=== PATIENT | female | born 1955 | race Caucasian/White ===

== ENCOUNTER → 2016-12-06 | Outpatient (CLI) | payer MEDICARE, MEDICAID ==
[2016-12-06 10:13] LABS: ABSOLUTE BASOPHILS # (AUTO) 0.1 10^3/uL (0.0-0.2); ABSOLUTE EOSINOPHILS # (AUTO) 0.2 10^3/uL (0.0-0.6); ABSOLUTE MONOCYTES (AUTO) 0.3 10^3/uL (0.1-1.4); ABSOLUTE NEUT (AUTO) 4.2 10^3/uL (1.7-8.2); EOSINOPHILS % (AUTO) 3.8 % (0-6); HEMATOCRIT 39.9 % (36.0-47.0); HEMOGLOBIN 13.3 g/dL (12.0-15.5); LYMPHOCYTES % (AUTO) 17.4 % (13-45); MEAN CORPUSCULAR HEMOGLOBIN 32.4 pg (27.0-33.4); MEAN CORPUSCULAR HGB CONC 33.4 g/dL (32.0-36.0); MEAN CORPUSCULAR VOLUME 97 fl (80-97); MONOCYTES % (AUTO) 5.6 % (3-13); RED BLOOD COUNT 4.11 10^6/uL (3.72-5.28); RED CELL DISTRIBUTION WIDTH 12.8 % (11.5-14.0); SEGMENTED NEUTROPHILS % (AUTO) 72.2 % (42-78); WHITE BLOOD COUNT 5.8 10^3/uL (4.0-10.5)
[2016-12-06 10:39] LABS: ALANINE AMINOTRANSFERASE 36 U/L (9-52); ALBUMIN 4.6 g/dL (3.5-5.0); ALKALINE PHOSPHATASE 99 U/L (38-126); ANION GAP 10 (5-19); ASPARTATE AMINO TRANSFERASE 26 U/L (14-36); BILIRUBIN,DIRECT 0.1 mg/dL (0.0-0.4); BILIRUBIN,TOTAL 0.6 mg/dL (0.2-1.3); BLOOD UREA NITROGEN 11 mg/dL (7-20); CALCIUM 10.1 mg/dL (8.4-10.2); CARBON DIOXIDE 30 mmol/L (22-30); CHLORIDE 104 mmol/L (98-107); CHOLESTEROL 243.64 mg/dL (0-200); CREATININE RESULT 0.77 mg/dL (0.52-1.25); Direct HDL 105 mg/dL (>40); GLUCOSE 90 mg/dL (75-110); POTASSIUM 4.7 mmol/L (3.6-5.0); SODIUM 144.4 mmol/L (137-145); TOTAL PROTEIN 7.7 g/dL (6.3-8.2); TRIGLYCERIDES 119 mg/dL (<150)
[2016-12-06 10:50] LABS: DIRECT LDL 106 mg/dL (<100)
[2016-12-06 11:45] LABS: THYROID STIMULATING HORMONE 1.79 uIU/mL (0.47-4.68)
== END ==
LOC: LAB 10:01
PROVIDERS: ATTEND Internal Medicine
DX: E78.00 Pure hypercholesterolemia, unspecified (principal); F32.2 Major depressive disorder, single episode, severe without psychotic features; Z79.899 Other long term (current) drug therapy
CPT/HCPCS: 36415; 80053; 80061; 84439; 84443; 85025

== ENCOUNTER → 2016-12-26 | Outpatient (CLI) | payer MEDICARE, MEDICAID | LOC: WI 10:48 | PROVIDERS: ATTEND Internal Medicine | DX: Z12.31 Encounter for screening mammogram for malignant neoplasm of breast (principal) | CPT/HCPCS: 77067; G0202 ==

== ENCOUNTER 2017-06-09 11:18 | Inpatient (IN) | payer MEDICARE, MEDICAID ==
[2017-06-09] MEDS ORDERED: DILTIAZEM HCL INJ 25 MG/5 ML VIAL IV ONE ×2 (11:25→12:15)
[2017-06-09] MEDS: DILTIAZEM HCL/D5W 125 MG/125 ML RTUINJ IV PRN ×2 (11:26→12:56)
[2017-06-09] MEDS ORDERED: ASPIRIN 81 MG TABLET, CHEWABLE PO ONE (11:26)
[2017-06-09] MEDS ORDERED: NORMAL SALINE 1000 ML 1,000 ML IV ONE (11:27)
[2017-06-09] MEDS ORDERED: DILTIAZEM HCL INJ 25 MG/5 ML VIAL ONE (11:28)
--- NOTE | 2017-06-09 11:40 | RADIOLOGY REPORT (SQ) ---
EXAM DESCRIPTION: CHEST SINGLE VIEW COMPLETED DATE/TIME: 06/09/2017 11:30 am REASON FOR STUDY: t1 rapid hr COMPARISON: December 2005 EXAM PARAMETERS: NUMBER OF VIEWS: One view. TECHNIQUE: Single frontal radiographic view of the chest acquired. RADIATION DOSE: NA LIMITATIONS: None. FINDINGS: LUNGS AND PLEURA: No opacities, masses or pneumothorax. No pleural effusion. I cannot exc lude a component of obstructive lung disease. MEDIASTINUM AND HILAR STRUCTURES: No masses. Contour normal. HEART AND VASCULAR STRUCTURES: Heart normal in size. Normal vasculature. BONES: No acute findings. HARDWARE: None in the chest. OTHER: No other significant finding. IMPRESSION: No significant interval change. No acute findings. Other findings as noted above TECHNICAL DOCUMENTATION: JOB ID: [id number]
[2017-06-09 11:49] LABS: ABSOLUTE EOSINOPHILS # (AUTO) 0.2 10^3/uL (0.0-0.6); ABSOLUTE LYMPHOCYTES (AUTO) 1.2 10^3/uL (0.5-4.7); ABSOLUTE MONOCYTES (AUTO) 0.4 10^3/uL (0.1-1.4); ABSOLUTE NEUT (AUTO) 4.3 10^3/uL (1.7-8.2); BASOPHILS % (AUTO) 0.7 % (0-2); EOSINOPHILS % (AUTO) 2.7 % (0-6); HEMATOCRIT 41.3 % (36.0-47.0); HEMOGLOBIN 14.1 g/dL (12.0-15.5); LYMPHOCYTES % (AUTO) 19.7 % (13-45); MEAN CORPUSCULAR HGB CONC 34.3 g/dL (32.0-36.0); MEAN CORPUSCULAR VOLUME 96 fl (80-97); MONOCYTES % (AUTO) 6.6 % (3-13); RED BLOOD COUNT 4.29 10^6/uL (3.72-5.28); RED CELL DISTRIBUTION WIDTH 12.9 % (11.5-14.0); SEGMENTED NEUTROPHILS % (AUTO) 70.3 % (42-78); WHITE BLOOD COUNT 6.1 10^3/uL (4.0-10.5)
[2017-06-09 11:49] LABS: APPEARANCE,URINE CLEAR; BILIRUBIN,URINE NEGATIVE (NEGATIVE); GLUCOSE, URINE NEGATIVE (NEGATIVE); KETONES,URINE TRACE mg/dL (NEGATIVE); LEUKOCYTE ESTERASE,URINE SMALL (NEGATIVE); NITRITE,URINE NEGATIVE (NEGATIVE); PROTEIN,URINE NEGATIVE (NEGATIVE); URINE SPECIFIC GRAVITY 1.002; UROBILINOGEN,URINE NEGATIVE mg/dL (<2.0)
[2017-06-09 11:59] LABS: PROTHROMBIN TIME 12.4 SEC (11.4-15.4)
[2017-06-09 12:00] LABS: PARTIAL THROMBOPLASTIN TIME 31.2 SEC (23.5-35.8)
[2017-06-09 12:02] LABS: D-DIMER 0.39 ug/mL (0.00-0.50)
[2017-06-09 12:04] LABS: URINE BARBITURATES SCREEN NEGATIVE; URINE METHADONE SCREEN NEGATIVE; URINE OPIATES LOW NEGATIVE; URINE PHENCYCLIDINE SCREEN NEGATIVE
[2017-06-09 12:11] LABS: ALANINE AMINOTRANSFERASE 30 U/L (9-52); ALBUMIN 4.7 g/dL (3.5-5.0); ALKALINE PHOSPHATASE 110 U/L (38-126); ANION GAP 17 (5-19); ASPARTATE AMINO TRANSFERASE 30 U/L (14-36); BILIRUBIN,DIRECT 0.4 mg/dL (0.0-0.4); BILIRUBIN,TOTAL 0.7 mg/dL (0.2-1.3); BLOOD UREA NITROGEN 13 mg/dL (7-20); CALCIUM 9.9 mg/dL (8.4-10.2); CARBON DIOXIDE 20 mmol/L (22-30); CHLORIDE 109 mmol/L (98-107); CREATINE KINASE 106 U/L (30-135); CREATININE RESULT 0.62 mg/dL (0.52-1.25); GLUCOSE 104 mg/dL (75-110); POTASSIUM 3.9 mmol/L (3.6-5.0); SODIUM 146.1 mmol/L (137-145)
[2017-06-09] MEDS ORDERED: HEPARIN SODIUM,PORCINE/D5W 25,000 UNIT/250 ML RTUINJ IV PRN ×2 (12:18→14:00)
[2017-06-09 12:20] LABS: CREATINE KINASE MB 0.99 ng/mL (<4.55)
[2017-06-09 12:21] LABS: TROPONIN I < 0.012 ng/mL
[2017-06-09 12:39] LABS: THYROID STIMULATING HORMONE 0.94 uIU/mL (0.47-4.68)
--- NOTE | 2017-06-09 12:52 | ER Document Report ---
ED General - General Chief Complaint: Irregular Pulse Stated Complaint: RAPID HEART BEAT Time Seen by Provider: 06/09/17 11:24 TRAVEL OUTSIDE OF THE [place] IN LAST 30 DAYS: No - HPI Patient complains to provider of: A. fib RVR Notes: Patient coming in for evaluation of tachycardia. 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 fib RVR. Patient was then given Cardizem started on Cardizem drip and transferred to the ER. Upon my evaluation patient still tachycardic however resting comfortably complaining of palpitations no chest pain. Patient denies any drug abuse denies any past medical history denies any fevers chills nausea vomiting recent travel shortness of breath. - Related Data Allergies/Adverse Reactions: Penicillins Allergy (Verified 12/20/15 12:26) Sulfa (Sulfonamide Antibiotics) Allergy (Verified 12/20/15 12:26) Home Medications: Current Home Medications Diazepam [Valium] 10 mg PO DAILYP PRN 06/09/17 [History] Past Medical History - Social History Smoking Status: Never Smoker Family History: Reviewed & Not Pertinent Pulmonary Medical History: Reports: Hx Asthma Psychiatric Medical History: Reports: Hx Depression Past Surgical History: Reports: Hx Gynecologic Surgery, Hx Tubal Ligation Review of Systems - Review of Systems Constitutional: No symptoms reported EENT: No symptoms reported Cardiovascular: Palpitations Respiratory: No symptoms reported Gastrointestinal: No symptoms reported Genitourinary: No symptoms reported Female Genitourinary: No symptoms reported Musculoskeletal: No symptoms reported Skin: No symptoms reported Hematologic/Lymphatic: No symptoms reported Neurological/Psychological: No symptoms reported -: Yes All other systems reviewed and negative Physical Exam - Vital signs Vitals: Temp Pulse Resp BP Pulse Ox 98.6 F 146 H 18 142/103 H 100 06/09/17 11:18 06/09/17 11:18 06/09/17 11:18 06/09/17 11:18 06/09/17 11:18 Interpretation: Tachycardic - General General appearance: Appears well, Alert - HEENT Head: Normocephalic, Atraumatic Eyes: Normal Pupils: PERRL - Respiratory Respiratory status: No respiratory distress Chest status: Nontender Breath sounds: Normal Chest palpation: Normal - Cardiovascular Rhythm: Regular, Tachycardia Heart sounds: Normal auscultation Murmur: No - Abdominal Inspection: Normal Distension: No distension Bowel sounds: Normal Tenderness: Nontender Organomegaly: No organomegaly - Back Back: Normal, Nontender - Extremities General upper extremity: Normal inspection, Nontender, Normal color, Normal ROM , Normal temperature General lower extremity: Normal inspection, Nontender, Normal color, Normal ROM , Normal temperature, Normal weight bearing. No: Steve's sign - Neurological Neuro grossly intact: Yes Cognition: Normal Orientation: AAOx4 Nicole Coma Scale Eye Opening: Spontaneous [place] Coma Scale Verbal: Oriented [place] Coma Scale Motor: Obeys Commands Kiron Coma Scale Total: 15 Speech: Normal Motor strength normal: LUE, RUE, LLE, RLE Sensory: Normal - Psychological Associated symptoms: Normal affect, Normal mood - Skin Skin Temperature: Warm Skin Moisture: Dry Skin Color: Normal Course - Re-evaluation Re-evalutation: 06/09/17 14:42 Patient placed on Cardizem drip heparin drip did have end up giving a dose of dig after multiple boluses of Cardizem felt to truly rate control the patient. Discussed with hospitalist workup otherwise negative will admit for A. fib RVR. - Vital Signs Vital signs: Temp Pulse Resp BP Pulse Ox 98.6 F 146 H 14 154/93 H 100 06/09/17 11:18 06/09/17 11:18 06/09/17 14:01 06/09/17 14:01 06/09/17 14:01 - Laboratory Result Diagrams: 06/09/17 11:23 06/09/17 11:23 Laboratory results interpreted by me: 06/09/17 06/09/17 11:23 11:31 Sodium 146.1 H Chloride 109 H Carbon Dioxide 20 L Urine Ketones TRACE H Urine Blood SMALL H Ur Leukocyte Esterase SMALL H Critical Care Note - Critical Care Note Total time excluding time spent on procedures (mins): 50 Discharge - Discharge Clinical Impression: New onset a-fib, Atrial fibrillation with RVR Condition: Good Disposition: ADMITTED INPATIENT Admitting Provider: Hospitalist - Torie Unit Admitted: [facility]
[2017-06-09] MEDS: HEPARIN SOD (PORCINE) 1,000 UNIT/ML 10 ML VIAL IV PRN (12:53)
[2017-06-09] MEDS ORDERED: DIGOXIN INJ 0.5 MG/2 ML AMPULE IV ONE (13:33)
[2017-06-09] MEDS ORDERED: DEXTROSE 40% GEL 15 GM TUBE PO PRN ×2 (13:46)
[2017-06-09] MEDS ORDERED: GLUCAGON,HUMAN RECOMB 1 MG INJ SUBCUT PRN (13:46)
[2017-06-09] MEDS ORDERED: ONDANSETRON 4 MG TAB.RAPDIS PO PRN (13:46)
[2017-06-09] MEDS ORDERED: DEXTROSE 50%-WATER 25 GM/50 ML DISP.SYRIN IV PRN ×2 (13:46)
[2017-06-09] MEDS ORDERED: DILTIAZEM HCL/D5W 125 ML IV PRN (13:54)
[2017-06-09] MEDS ORDERED: DIAZEPAM 5 MG TABLET PO PRN (14:24)
[2017-06-09] MEDS ORDERED: DILTIAZEM HCL/D5W 125 MG/125 ML RTUINJ IV PRN (14:48)
[2017-06-09 15:07] LABS: ABSOLUTE BASOPHILS # (AUTO) 0.1 10^3/uL (0.0-0.2); ABSOLUTE EOSINOPHILS # (AUTO) 0.1 10^3/uL (0.0-0.6); ABSOLUTE LYMPHOCYTES (AUTO) 1.3 10^3/uL (0.5-4.7); ABSOLUTE MONOCYTES (AUTO) 0.6 10^3/uL (0.1-1.4); ABSOLUTE NEUT (AUTO) 7.1 10^3/uL (1.7-8.2); BASOPHILS % (AUTO) 0.7 % (0-2); EOSINOPHILS % (AUTO) 0.8 % (0-6); HEMATOCRIT 40.5 % (36.0-47.0); HEMOGLOBIN 14.2 g/dL (12.0-15.5); HGB HCT DIFFERENCE 2.1; LYMPHOCYTES % (AUTO) 14.6 % (13-45); MEAN CORPUSCULAR HEMOGLOBIN 33.6 pg (27.0-33.4); MEAN CORPUSCULAR VOLUME 96 fl (80-97); MONOCYTES % (AUTO) 6.3 % (3-13); RED BLOOD COUNT 4.22 10^6/uL (3.72-5.28); RED CELL DISTRIBUTION WIDTH 13.2 % (11.5-14.0); SEGMENTED NEUTROPHILS % (AUTO) 77.6 % (42-78); WHITE BLOOD COUNT 9.2 10^3/uL (4.0-10.5)
[2017-06-09 15:21] LABS: PROTHROMBIN TIME 13.6 SEC (11.4-15.4)
[2017-06-09 15:41] LABS: CREATINE KINASE MB 1.31 ng/mL (<4.55)
[2017-06-09] MEDS ORDERED: DILTIAZEM HCL 180 MG CAPSULE.CR PO ONE (15:43)
[2017-06-09 15:47] LABS: TROPONIN I 0.056 ng/mL
[2017-06-09 15:50] LABS: PARTIAL THROMBOPLASTIN TIME 127.1 SEC (23.5-35.8)
--- NOTE | 2017-06-09 16:23 | EKG REPORT ---
SEVERITY:- ABNORMAL ECG - ATRIAL FIBRILLATION ST DEPRESSION, PROBABLY RATE RELATED : Confirmed by: Boni Campos MD 09-Jun-2017 16:22:42
--- NOTE | 2017-06-09 16:23 | EKG REPORT ---
SEVERITY:- BORDERLINE ECG - SINUS RHYTHM PROBABLE LEFT ATRIAL ABNORMALITY : Confirmed by: Boni Campos MD 09-Jun-2017 16:22:30
[2017-06-09] MEDS ORDERED: LISINOPRIL 10 MG TABLET PO ONE (17:56)
--- NOTE | 2017-06-09 17:58 | PDOC H&P ---
History of Present Illness Admission Date/PCP: 06/09/17 13:46 LADI RASMUSSEN MD Patient complains of: Heart palpitations History of Present Illness: ZAID VALADEZ is a 61 year old female who presents to the emergency room with complaint of heart palpitations. Patient states that she just started a new job and had completed a 13 hour shift when she noted that her heart felt to be beating fast. Patient states that she felt somewhat weak and thought that she should check her heart rate. Patient states that when she checked her heart rate she noted that it was very fast. Patient states that she had used Afrin which she thought could have potentially caused her rapid heart rate. Patient denied any chest pain or nausea vomiting. Patient did admit to having shortness of breath and weakness. Past Medical History Pulmonary Medical History: Reports: Asthma Psychiatric Medical History: Reports: Depression Past Surgical History Past Surgical History: Reports: Tubal Ligation, Other - Vulvar laser surgery Social History Smoking Status: Never Smoker Frequency of Alcohol Use: Occasional Hx Recreational Drug Use: No Drugs: None Hx Prescription Drug Abuse: No Family History Family History: Other - Father with hypertension and cancer Mother with ID and hypertension Sister with heart murmur congenital Parental Family History Reviewed: Yes Children Family History Reviewed: Yes Sibling(s) Family History Reviewed.: Yes Medication/Allergy Home Medications: Fluoxetine HCl [Prozac] 40 mg PO DAILY 04/25/13 Diazepam [Valium] 10 mg PO DAILYP PRN 06/09/17 Allergies/Adverse Reactions: Penicillins Allergy (Verified 12/20/15 12:26) Sulfa (Sulfonamide Antibiotics) Allergy (Verified 12/20/15 12:26) Review of Systems Constitutional: PRESENT: weakness. ABSENT: as per HPI, anorexia, chills, fatigue, fever(s), headache(s), night sweats, weight gain, weight loss, other Eyes: ABSENT: visual disturbances Ears: ABSENT: hearing changes Cardiovascular: PRESENT: palpitations. ABSENT: chest pain, dyspnea on exertion , edema, orthropnea Respiratory: PRESENT: dyspnea Gastrointestinal: ABSENT: abdominal pain, constipation, diarrhea, hematemesis, hematochezia, nausea, vomiting Genitourinary: ABSENT: dysuria, hematuria Musculoskeletal: ABSENT: joint swelling Integumentary: ABSENT: rash, wounds Neurological: ABSENT: abnormal gait, abnormal speech, confusion, dizziness, focal weakness, syncope Psychiatric: PRESENT: anxiety, depression Endocrine: ABSENT: cold intolerance, heat intolerance, polydipsia, polyuria Hematologic/Lymphatic: ABSENT: easy bleeding, easy bruising Physical Exam Vital Signs: Temp Pulse Resp BP Pulse Ox 98.4 F 78 10 L 142/65 H 100 06/09/17 15:51 06/09/17 16:44 06/09/17 16:06 06/09/17 16:06 06/09/17 16:06 Intake & Output 06/08/17 06/09/17 06/10/17 06:59 06:59 06:59 Output Total 200 Balance -200 General appearance: PRESENT: mild distress, well-developed, well-nourished Head exam: PRESENT: atraumatic, normocephalic Eye exam: PRESENT: conjunctiva pink, EOMI. ABSENT: scleral icterus Ear exam: PRESENT: normal external ear exam Mouth exam: PRESENT: moist, tongue midline Neck exam: ABSENT: carotid bruit, JVD, lymphadenopathy, thyromegaly Respiratory exam: PRESENT: clear to auscultation tevin. ABSENT: rales, rhonchi, wheezes Cardiovascular exam: PRESENT: irregular rhythm, tachycardia Pulses: PRESENT: normal dorsalis pedis pul Vascular exam: PRESENT: normal capillary refill GI/Abdominal exam: PRESENT: normal bowel sounds, soft. ABSENT: distended, guarding, mass, organolmegaly, rebound, tenderness Rectal exam: PRESENT: deferred Extremities exam: PRESENT: full ROM. ABSENT: calf tenderness, clubbing, pedal edema Neurological exam: PRESENT: alert, awake, oriented to person, oriented to place , oriented to time, oriented to situation, CN II-XII grossly intact. ABSENT: motor sensory deficit Psychiatric exam: PRESENT: appropriate affect, normal mood. ABSENT: homicidal ideation, suicidal ideation Skin exam: PRESENT: dry, intact, warm. ABSENT: cyanosis, rash Results Laboratory Results: 06/09/17 15:00 06/09/17 15:00 WBC 9.2 RBC 4.22 Hgb 14.2 Hct 40.5 MCV 96 MCH 33.6 H MCHC 35.0 RDW 13.2 Plt Count 226 Seg Neutrophils % 77.6 Lymphocytes % 14.6 Monocytes % 6.3 Eosinophils % 0.8 Basophils % 0.7 Absolute Neutrophils 7.1 Absolute Lymphocytes 1.3 Absolute Monocytes 0.6 Absolute Eosinophils 0.1 Absolute Basophils 0.1 06/09/17 15:00 CK-MB (CK-2) 1.31 Troponin I 0.056 Impressions: Chest X-Ray 06/09/17 11:19 IMPRESSION: No significant interval change. No acute findings. Other findings as noted above Assessment & Plan - Diagnosis (1) Atrial fibrillation with RVR Is this a current diagnosis for this admission?: Yes Plan: Patient was found to be in A. fib with RVR and was placed on a diltiazem drip. Patient's heart rate on diltiazem drip was noted to be 110. Patient was given a dose of digoxin 1 approximately 1 hour later patient converted to normal sinus rhythm. Patient was weaned off the diltiazem drip and placed on oral diltiazem. 2D echo has been ordered and troponins are being trended. Cardiology has been consulted. Patient is on heparin drip. His chads 2 score is 2. (2) Depression Qualifiers: Depression Type: major depressive disorder Is this a current diagnosis for this admission?: Yes Plan: We will continue fluoxetine. (3) Anxiety Is this a current diagnosis for this admission?: Yes Plan: We will continue Valium (4) Essential hypertension Is this a current diagnosis for this admission?: Yes Plan: Will add lisinopril. (5) Hypernatremia Is this a current diagnosis for this admission?: Yes Plan: We will monitor. Will check BMP in a.m. (6) Metabolic acidosis Is this a current diagnosis for this admission?: Yes Plan: We will monitor will check BMP in a.m. (7) DVT prophylaxis Is this a current diagnosis for this admission?: Yes Plan: Heparin - Time Time Spent: 30 to 50 Minutes Anticipated discharge: Home
--- NOTE | 2017-06-09 19:24 | PDOC CONSULTATION ---
Consultation Consult Date: 06/09/17 Attending physician:: CHINO ANDERSON Consult reason:: Atrial fibrillation History of Present Illness Admission Date/PCP: 06/09/17 13:46 LADI RASMUSSEN MD Patient complains of: Palpitations History of Present Illness: ZAID VALADEZ is a 61 year old female who presents to the emergency room with complaint of heart palpitations. Patient states that she just started a new job and had completed a 13 hour shift when she noted that her heart felt to be beating fast. Patient states that she felt somewhat weak and thought that she should check her heart rate. Patient states that when she checked her heart rate she noted that it was very fast. Patient states that she had used Afrin which she thought could have potentially caused her rapid heart rate. Patient denied any chest pain or nausea vomiting. Patient did admit to having shortness of breath and weakness. Patient also claims of having intermittent palpitations. Now thinking through she thinks that each time she had used Afrin nasal spray, she would get some palpitations. Patient denied any prior history of myocardial infarction, atrial fibrillation, strokes, mini strokes or CHF. Past Medical History Pulmonary Medical History: Reports: Asthma Psychiatric Medical History: Reports: Depression Past Surgical History Past Surgical History: Reports: Tubal Ligation, Other - Vulvar laser surgery Social History Information Source: Patient Smoking Status: Never Smoker Frequency of Alcohol Use: Occasional Hx Recreational Drug Use: No Drugs: None Hx Prescription Drug Abuse: No - Advance Directive Resuscitation Status: Full Code Surrogate healthcare decision maker:: Patient's daughter is a surrogate decision maker Family History Family History: Other - Father with hypertension and cancer Mother with DE and hypertension Sister with heart murmur congenital Parental Family History Reviewed: Yes Children Family History Reviewed: Yes Sibling(s) Family History Reviewed.: Yes Medication/Allergy Home Medications: Fluoxetine HCl [Prozac] 40 mg PO DAILY 04/25/13 Diazepam [Valium] 10 mg PO DAILYP PRN 06/09/17 Allergies/Adverse Reactions: Penicillins Allergy (Verified 12/20/15 12:26) Sulfa (Sulfonamide Antibiotics) Allergy (Verified 12/20/15 12:26) Review of Systems Review of Systems: Please see history of present illness and past medical history as wall. Constitutional: No fever or chills reported. Head : No recent chronic headaches, recent head injury. History of nasal allergies. Eyes: No recent eye pain, diplopia, redness, discharge, acute visual changes. Ears: No recent chronic ear pain, acute hearing loss, ear discharge. Oral cavity: No recent ulcerations, bleeding, oral cavity discomfort. Neck: No recent acute neck pain reported. Hematologic: No recent easy bruising or bleeding or hematologic malignancy reported. Lymphatic: No recent lymphatic malignancy, chronic lymphadenopathy reported yet Cardiovascular system review: See history of present illness. Respiratory system review: No recent chronic cough, hemoptysis, blood clots in the lungs reported. Mild Shortness of breath on exertion Gastrointestinal system review: Negative for any recent acute or chronic abdominal pain, hematemesis, melena, recent change in bowel habits. Genitourinary system review: No recent acute or chronic hematuria, flank pain, UTI etc. reported. Skin system review: Negative for any recent abnormal bruising, no rash, no pruritus reported. Neurologic: No prior history of strokes, mini strokes, seizure disorder. Psychologic: No history of major psychosis or major depression reported. Musculoskeletal: Minor aches and pains reported. No acute joint swelling reported. Endocrine: No recent polyuria, polydipsia, recent heat or cold intolerance. Patient does describe difficulty falling asleep and staying asleep. Patient also noted to be sleep deprived. Physical Exam Vital Signs: Temp Pulse Resp BP Pulse Ox 97.8 F 71 18 150/62 H 100 06/09/17 17:34 06/09/17 17:34 06/09/17 17:34 06/09/17 17:34 06/09/17 17:34 Intake & Output 06/08/17 06/09/17 06/10/17 06:59 06:59 06:59 Output Total 200 Balance -200 Exam: GENERAL: well-nourished and in no acute distress. Alert and oriented x3 HEAD: Atraumatic, normocephalic. EYES: Pupils equal round and reactive to light, extraocular movements intact, sclera anicteric, conjunctiva are normal. ENT: TMs normal, nares patent, oropharynx clear without exudates. Moist mucous membranes. No oral ulcerations or bleeding gums noted NECK: supple without lymphadenopathy. Trachea is central. No cervical or axillary lymphadenopathy noted. Carotids are 2+, JVD WNL LUNGS: Respiration seems nonlabored, no significant accessory muscle action noted. Breath sounds clear to auscultation bilaterally and equal noted. No wheezes rales or rhonchi noted. No significant dullness noted on percussion. CHEST: Palpation of the chest wall shows no significant chest wall tenderness. No other significant abnormalities noted. 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 ABDOMEN: Soft, no significant tenderness appreciated, normoactive bowel sounds. No guarding, no rebound. No rigidity noted . No masses appreciated. EXTREMITIES: Pedal pulses are 1-2+, no calf tenderness noted. No clubbing or cyanosis.trace to 1+ pedal edema noted NEUROLOGICAL: Focused neurological exam showed no significant neurologic deficit. Normal speech, no focal weakness appreciated. PSYCH: Normal mood, normal affect. Judgment and insight within normal limits. SKIN: No significant ecchymosis, rash, ulcerations or signs of pruritus noted. MUSCULOSKELETAL EXAM: No significant joint swelling noted. Results Laboratory Results: 06/09/17 15:00 06/09/17 15:00 WBC 9.2 RBC 4.22 Hgb 14.2 Hct 40.5 MCV 96 MCH 33.6 H MCHC 35.0 RDW 13.2 Plt Count 226 Seg Neutrophils % 77.6 Lymphocytes % 14.6 Monocytes % 6.3 Eosinophils % 0.8 Basophils % 0.7 Absolute Neutrophils 7.1 Absolute Lymphocytes 1.3 Absolute Monocytes 0.6 Absolute Eosinophils 0.1 Absolute Basophils 0.1 06/09/17 15:00 CK-MB (CK-2) 1.31 Troponin I 0.056 EKG Comments: Atrial fibrillation with rapid ventricular response. Some rate related ST segment changes noted. Subsequently patient noted to be in normal rhythm. Impressions: Chest X-Ray 06/09/17 11:19 IMPRESSION: No significant interval change. No acute findings. Other findings as noted above Assessment & Plan - Diagnosis (1) Atrial fibrillation with RVR Is this a current diagnosis for this admission?: Yes (2) Essential hypertension Is this a current diagnosis for this admission?: Yes (3) Depression Qualifiers: Depression Type: major depressive disorder Is this a current diagnosis for this admission?: Yes (4) Sleep disorder Is this a current diagnosis for this admission?: Yes (5) Elevated troponin I level Is this a current diagnosis for this admission?: Yes - Notes Notes: Atrial fibrillation with rapid ventricular response: New onset presumably related to Afrin use. Patient does have history of hypertension. [id number] noted to be just 2. Duration of atrial fibrillation seems to be less than 12 hours. I believe since there is a precipitating cause, patient could just be discharged on regular aspirin after checking 2D echo. If 2D echo shows normal left atrial size and normal LVEF, then just discharged on aspirin should be adequate however if shows other high risk features then would recommend newer oral anticoagulants. Patient will be given twice to pursue oral anticoagulants anyway after review of 2D echo. Hypertension: Reasonably well controlled. Blood pressure goal in this patient is 135/85 or less. This was discussed with the patient. Currently blood pressure under reasonable control. Better medication for this patient are STEVE inhibitor/ARB/beta mone etc. discussed side effects of uncontrolled hypertension and also severe hypotension. Depression: Continue Prozac therapy. Sleep disorder: Patient does have Mallampati class IV oral classification. She does have difficulty falling asleep and staying asleep. Cannot tell me whether she has no sore not because she lives alone. Discussed association of sleep apnea with atrial fibrillation. Will consider scheduling her for a sleep study as an outpatient. Meka Mathew Elevation: sec to supply demand mismtach, Will schedule NST. - Time Time Spent: 30 to 50 Minutes - CODE STATUS was discussed, patient remains full code. Surrogate decision-maker unchanged. Multiple medical problems were addressed. More than 50% of the time spent coordinating care, discussing management plans with involved caregivers. Management plans discussed with involved personnels. Medical decision making was of moderate to high complexity , patient's has multiple comorbidities. Medications reviewed and adjusted accordingly: Yes
[2017-06-09 21:05] LABS: CREATINE KINASE MB 1.2 ng/mL (<4.55); TROPONIN I 0.034 ng/mL
[2017-06-09] MEDS ORDERED: LORAZEPAM 0.5 MG TABLET PO ONE (23:00)
[2017-06-10 01:57] LABS: PROTHROMBIN TIME 12.7 SEC (11.4-15.4)
[2017-06-10 01:58] LABS: PARTIAL THROMBOPLASTIN TIME 42.8 SEC (23.5-35.8)
[2017-06-10 02:05] LABS: CREATINE KINASE MB 1.01 ng/mL (<4.55); TROPONIN I 0.021 ng/mL
[2017-06-10] MEDS: HEPARIN SOD (PORCINE) 1,000 UNIT/ML 10 ML VIAL IV PRN (02:33)
[2017-06-10] MEDS: ACETAMINOPHEN 325 MG TABLET PO PRN ×2 (06:00→12:53)
[2017-06-10 06:25] LABS: HEMATOCRIT 36.1 % (36.0-47.0); HEMOGLOBIN 12.8 g/dL (12.0-15.5); HGB HCT DIFFERENCE 2.3; MEAN CORPUSCULAR HGB CONC 35.4 g/dL (32.0-36.0); MEAN CORPUSCULAR VOLUME 96 fl (80-97); RED BLOOD COUNT 3.75 10^6/uL (3.72-5.28); RED CELL DISTRIBUTION WIDTH 13.2 % (11.5-14.0)
[2017-06-10 07:06] LABS: ALANINE AMINOTRANSFERASE 26 U/L (9-52); ALBUMIN 4.1 g/dL (3.5-5.0); ALKALINE PHOSPHATASE 82 U/L (38-126); ANION GAP 10 (5-19); ASPARTATE AMINO TRANSFERASE 21 U/L (14-36); BILIRUBIN,DIRECT 0.3 mg/dL (0.0-0.4); BILIRUBIN,TOTAL 0.7 mg/dL (0.2-1.3); BLOOD UREA NITROGEN 18 mg/dL (7-20); CALCIUM 9.4 mg/dL (8.4-10.2); CARBON DIOXIDE 25 mmol/L (22-30); CHLORIDE 107 mmol/L (98-107); CHOLESTEROL 211.78 mg/dL (0-200); CREATININE RESULT 0.71 mg/dL (0.52-1.25); Direct HDL 99 mg/dL (>40); GLUCOSE 94 mg/dL (75-110); POTASSIUM 3.8 mmol/L (3.6-5.0); SODIUM 142.2 mmol/L (137-145); TOTAL PROTEIN 6.7 g/dL (6.3-8.2); TRIGLYCERIDES 68 mg/dL (<150)
[2017-06-10 07:31] LABS: DIRECT LDL 96 mg/dL (<100)
--- NOTE | 2017-06-10 08:06 | EKG REPORT ---
SEVERITY:- BORDERLINE ECG - SINUS RHYTHM ATRIAL PREMATURE COMPLEX BORDERLINE T ABNORMALITIES, DIFFUSE LEADS : Confirmed by: Leena Hernandez MD 10-Jun-2017 08:05:52
[2017-06-10] MEDS ORDERED: DILTIAZEM HCL 180 MG CAPSULE.CR PO SCH (10:00)
[2017-06-10] MEDS ORDERED: LISINOPRIL 10 MG TABLET PO SCH (10:00)
[2017-06-10] MEDS ORDERED: FLUOXETINE HCL 20 MG CAPSULE PO SCH (10:00)
--- NOTE | 2017-06-10 13:16 | DRAGON STRESS TEST REPORT ---
INTRAVENOUS LEXISCAN CARDIOLITE STRESS TEST USING SINGLE PHOTON EMMISION COMPUTERIZED TOMOGRAPHIC. DATE OF PROCEDURE: []2016 INDICATION : Atrial fibrillation RESTING EKG: Sinus rhythm without any baseline ST-T wave changes STRESS EKG: No significant changes noted with LexiScan bolus REASON FOR TERMINATION: Protocol. PROCEDURE REPORT: Baseline heart rate 76 beats per minute with blood pressure of 137/58. Patient had no significant complaints. Heart rate at 2 minutes post bolus 96 with a blood pressure of 156/64. 3 minutes post bolus heart rate 88 with blood pressure of 155/63. No significant EKG changes were noted. Patient had no significant complaints during the procedure or postprocedure. Patient injected with Aminophyllin 75 mg at 3 minutes or later after Lexiscan bolus. CONCLUSIONS: Normal EKG and hemodynamic response to IV LexiScan. NUCLEAR DATA: At rest the patient was given 9.63 millicuries of technetium 99 sestamibi injected intravenously. As per protocol rest gated SPECT images were obtained. Subsequently the patient was given intravenous LexiScan at a dose of 0.4 mg in 5 mL intravenously, followed by flush with normal saline. Subsequently the stress dose of 32.4 millicuries of technetium 99 sestamibi was injected intravenously. As per protocol stress gated images were obtained. NUCLEAR INTERPRETATION: Both raw and processed data were used for interpretation. Visual, qualitative, computer-generated quantitative data was used. There was good myocardial uptake of technetium compound. Motion artifact and soft tissue attenuations were noted. Increased visceral uptake was noted. No definitive areas of transient perfusion defect noted. No definitive areas of fixed perfusion defect or scars noted. EKG gated imaging showed LV EF at 64 %, rest and stress gated EF similar visually. T. I D. ratio was 1.04. Lung heart ratio noted to be within normal limits 0.26. No significant extracardiac and abnormal radiotracer activities were noted. RV free wall uptake was noted to be WNL. IMPRESSION: Also refer to comments under nuclear interpretation. Also test results needs to be interpreted in the context of pretest probability. 1. There is no definitive scintigraphic evidence of LexiScan induced myocardial ischemia. 2. There is no definitive scintigraphic evidence of myocardial infarction/scar. 3. EKG gated imaging shows left ventricular ejection fraction of approximately 64 %. 4. Clinical correlation requested as occasionally single vessel disease or balanced ischemia could be missed. In approximately 10% of the cases Lexiscan may not cause adequate vasodilatory stress. RECOMMENDATIONS: Aggressive risk factor modification, medical therapy. Clinical correlation with echocardiogram derived ejection fraction. Inability to exercise by itself can lead to increased cardiovascular event risks. Consider cardiology consultation and or follow-up if clinically indicated. I AM AVAILABLE FOR CARDIOLOGY CONSULTATION AND FOLLOWUP IF REQUESTED BY PMD Patric Manuel M.D., EM Anatomy Professor territory account manager, Board certified in cardiovascular diseases, Nuclear cardiology, Echocardiography Cardiac CT and cardiac MRI Ph. [phone] [facility]
[2017-06-10] MEDS ORDERED: AMINOPHYLLINE INJ/PF 250 MG/10 ML SDV IV ONE (13:19)
[2017-06-10] MEDS ORDERED: REGADENOSON INJ 0.4 MG/5 ML DISP.SYRIN IV ONE (13:19)
[2017-06-10 16:55] VITALS: BP 142/103
--- NOTE | 2017-06-10 16:58 | PDOC DISCHARGE SUMMARY ---
General - Admit/Disc Date/PCP Admission Date/Primary Care Provider: 06/09/17 13:46 LADI RASMUSSEN MD Discharge Date: 06/10/17 - Discharge Diagnosis (1) Atrial fibrillation with RVR Is this a current diagnosis for this admission?: Yes Summary: Patient presented to the emergency room in A. fib with RVR and was placed on diltiazem drip. Patient was then given 1 dose of IV digoxin in approximately 1 hour later patient's heart rate converted to normal sinus rhythm. Patient was weaned off of diltiazem drip and placed on oral diltiazem. Patient had a 2D echo that demonstrated normal EF and patient had nuclear stress test that demonstrated no evidence of ischemia. Will place patient on Xarelto. Chads score 2 (2) Depression Is this a current diagnosis for this admission?: Yes Summary: We will continue patient on current medication. (3) Anxiety Is this a current diagnosis for this admission?: Yes Summary: We will continue patient on current medication. (4) Essential hypertension Is this a current diagnosis for this admission?: Yes Summary: Newly diagnosed essential hypertension: We will continue patient on lisinopril and diltiazem. (5) Hypernatremia Is this a current diagnosis for this admission?: Yes Summary: Resolved (6) Metabolic acidosis Is this a current diagnosis for this admission?: Yes Summary: Resolved - Additional Information Resuscitation Status: Full Code Discharge Diet: Cardiac Discharge Activity: Activity As Tolerated Home Medications: Fluoxetine HCl [Prozac] 40 mg PO DAILY 04/25/13 Diazepam [Valium] 10 mg PO DAILYP PRN 06/09/17 Diltiazem HCl [Cardizem Cd 180 mg Capsule] 180 mg PO DAILY #30 capsule.cr Lisinopril [Prinivil 10 mg Tablet] 10 mg PO DAILY #30 tablet 06/10/17 Pravastatin Sodium 10 mg PO DAILY #30 tablet 06/10/17 Rivaroxaban [Xarelto] 20 mg PO DAILY #30 tablet 06/10/17 History of Present Illness Patient complains of: Heart palpitations History of Present Illness: ZAID VALADEZ is a 61 year old female who presents to the emergency room with complaint of heart palpitations. Patient states that she just started a new job and had completed a 13 hour shift when she noted that her heart felt to be beating fast. Patient states that she felt somewhat weak and thought that she should check her heart rate. Patient states that when she checked her heart rate she noted that it was very fast. Patient states that she had used Afrin which she thought could have potentially caused her rapid heart rate. Patient denied any chest pain or nausea vomiting. Patient did admit to having shortness of breath and weakness. Hospital Course Hospital Course: Patient is a 61-year-old female that presented to our facility with complaint of heart palpitations. Patient was found to be in A. fib with RVR and was placed on diltiazem drip. Patient's heart rate still remained elevated and patient was given 1 dose of digoxin 1. Proximately 1 hour later patient's heart rate changed to normal sinus rhythm. Patient had nuclear stress test that demonstrated no evidence of ischemia and patient had a 2D echo which was read as normal. Patient's chads score is 2 and therefore patient was placed on Xarelto. Physical Exam Vital Signs: Temp Pulse Resp BP Pulse Ox 98.2 F 83 17 114/84 99 06/10/17 15:45 06/10/17 15:45 06/10/17 15:45 06/10/17 15:45 06/10/17 15:45 Intake & Output 06/09/17 06/10/17 06/11/17 06:59 06:59 06:59 Intake Total 1470 318 Output Total 201 Balance 1269 318 Weight 69.2 kg General appearance: PRESENT: no acute distress, well-developed, well-nourished Head exam: PRESENT: atraumatic, normocephalic Eye exam: PRESENT: conjunctiva pink, EOMI. ABSENT: scleral icterus Ear exam: PRESENT: normal external ear exam Mouth exam: PRESENT: moist, tongue midline Neck exam: ABSENT: carotid bruit, JVD, lymphadenopathy, thyromegaly Respiratory exam: PRESENT: clear to auscultation tevin. ABSENT: rales, rhonchi, wheezes Cardiovascular exam: PRESENT: RRR. ABSENT: diastolic murmur, rubs, systolic murmur Pulses: PRESENT: normal dorsalis pedis pul Vascular exam: PRESENT: normal capillary refill GI/Abdominal exam: PRESENT: normal bowel sounds, soft. ABSENT: distended, guarding, mass, organolmegaly, rebound, tenderness Rectal exam: PRESENT: deferred Extremities exam: PRESENT: full ROM. ABSENT: calf tenderness, clubbing, pedal edema Neurological exam: PRESENT: alert, awake, oriented to person, oriented to place , oriented to time, oriented to situation, CN II-XII grossly intact. ABSENT: motor sensory deficit Psychiatric exam: PRESENT: appropriate affect, normal mood. ABSENT: homicidal ideation, suicidal ideation Skin exam: PRESENT: dry, intact, warm. ABSENT: cyanosis, rash Results Laboratory Results: 06/10/17 06:13 06/10/17 06:13 06/10/17 06/10/17 06:13 06:13 WBC 7.0 RBC 3.75 Hgb 12.8 Hct 36.1 MCV 96 MCH 34.0 H MCHC 35.4 RDW 13.2 Plt Count 200 Sodium 142.2 Potassium 3.8 Chloride 107 Carbon Dioxide 25 Anion Gap 10 BUN 18 Creatinine 0.71 Est GFR ( Amer) > 60 Est GFR (Non-Af Amer) > 60 Glucose 94 Calcium 9.4 Total Bilirubin 0.7 AST 21 ALT 26 Alkaline Phosphatase 82 Total Protein 6.7 Albumin 4.1 Triglycerides 68 Cholesterol 211.78 H LDL Cholesterol Direct 96 VLDL Cholesterol 14.0 HDL Cholesterol 99 06/09/17 06/09/17 06/10/17 15:00 20:10 01:18 CK-MB (CK-2) 1.31 1.20 1.01 Troponin I 0.056 0.034 0.021 Impressions: Chest X-Ray 06/09/17 11:19 IMPRESSION: No significant interval change. No acute findings. Other findings as noted above
[2017-06-10] MEDS ORDERED: RIVAROXABAN 10 MG TABLET PO ONE (17:00)
--- NOTE | 2017-06-10 19:33 | XCELERA REPORT ---
[address] [address] Transthoracic Echocardiogram Report Name: ZAID VALADEZ Age: 61 yrs Gender: Female : 1955 Patient Status: Inpatient Patient Location: [address] [place], [place] [id number] Study Date: 06/10/2017 02:27 PM Height: 64 in Weight: 142 lb BSA: 1.7 m2 Procedure: A complete two-dimensional transthoracic echocardiogram was performed (2D, M-mode, spectral and color flow Doppler). The study was technically difficult with many images being suboptimal in quality. Reason For Study: Atrial fibrillation Ordering Physician: PATRIC LOVELL Performed By: Diane Stoddard Interpretation Summary The left ventricular ejection fraction is normal. There is borderline concentric left ventricular hypertrophy. Doppler measurements suggest pseudonormalized left ventricular relaxation, which is associated with grade II/IV or mild to moderate diastolic dysfunction The left ventricle is grossly normal size. Wall motion cannot be accurately commented on, but no definite regional wall motion abnormalities noted. The right ventricular systolic function is normal. The left atrial size is normal. The right atrium is normal. There is a trace amount of mitral regurgitation There is no mitral valve stenosis. No aortic regurgitation is present. There is no aortic valve stenosis There is no tricuspid stenosis. There is a trace or physiologic amount of tricuspid regurgitation The aortic root is not well visualized but is probably normal size. The inferior vena cava appeared normal and decreased > 50% with respiration (RAP 5-10 mmHg) There is no pericardial effusion. MMode/2D Measurements & Calculations RVDd: 2.9 cm LVIDd: 4.7 cm FS: 40.5 % Ao root diam: 2.7 cm IVSd: 0.92 cm LVIDs: 2.8 cm EDV(Teich): 103.0 ml LVPWd: 0.85 cmESV(Teich): 29.7 ml Ao root area: 5.9 cm2 EF(Teich): 71.2 % LA dimension: 3.0 cm LVOT diam: 1.9 cm LVOT area: 2.8 cm2 Doppler Measurements & Calculations MV E max vangie: MV P1/2t max vangie: Ao V2 max: LV V1 max P.1 cm/sec 69.1 cm/sec 142.5 cm/sec 5.1 mmHg MV A max vangie: MV P1/2t: 86.8 msec Ao max PG: LV V1 max: 87.9 cm/sec MVA(P1/2t): 2.5 cm2 8.1 mmHg 112.5 cm/sec MV E/A: 0.79 MV dec slope: SAYDA(V,D): 2.2 cm2 233.1 cm/sec2 PA V2 max: TR max vangie: 99.2 cm/sec 275.8 cm/sec PA max PG: TR max P.4 mmHg 3.9 mmHg Left Ventricle The left ventricle is grossly normal size. There is borderline concentric left ventricular hypertrophy. The left ventricular ejection fraction is normal. Doppler measurements suggest pseudonormalized left ventricular relaxation, which is associated with grade II/IV or mild to moderate diastolic dysfunction. Wall motion cannot be accurately commented on, but no definite regional wall motion abnormalities noted. Right Ventricle The right ventricle is grossly normal size. There is normal right ventricular wall thickness. The right ventricular systolic function is normal. Atria The right atrium is normal. The left atrial size is normal. Interarterial septum not well visualized and not well dopplered. Cannot comment on ASD/PFO presence. Mitral Valve The mitral valve is grossly normal. There is no mitral valve stenosis. There is a trace amount of mitral regurgitation. Aortic Valve The aortic valve is grossly normal. There is no aortic valve stenosis. No aortic regurgitation is present. Tricuspid Valve The tricuspid valve is not well visualized, but is grossly normal. There is no tricuspid stenosis. There is a trace or physiologic amount of tricuspid regurgitation. Pulmonic Valve The pulmonic valve is not well visualized. Great Vessels The aortic root is not well visualized but is probably normal size. The inferior vena cava appeared normal and decreased > 50% with respiration (RAP 5-10 mmHg). Effusions There is no pericardial effusion. : PATRIC LOVELL > Patric Lovell
--- NOTE | 2017-06-10 19:51 | PDOC PROGRESS REPORT ---
Subjective Progress Note for:: 06/10/17 Subjective:: Patient seems to be doing better with significant improvement. Patient converted to sinus rhythm shortly after admission and has maintained sinus rhythm. Her blood pressure has been noted to be elevated. Pt is denying any chest arm or neck discomfort. Patient denying any PND, orthopnea. Patient denied any sustained palpitations, dizziness, syncope, near syncope. Patient denying any fever chills. Patient denying any other significant discomfort. Patient is maintaining sinus rhythm. Review of systems: Rest review of systems negative. Medications: Medications have been reviewed. Physical Exam Vital Signs: Temp Pulse Resp BP Pulse Ox 98.2 F 83 17 142/103 H 99 06/10/17 16:51 06/10/17 16:51 06/10/17 16:51 06/10/17 16:51 06/10/17 16:51 Intake & Output 06/09/17 06/10/17 06/11/17 06:59 06:59 06:59 Intake Total 1470 318 Output Total 201 Balance 1269 318 Weight 69.2 kg Exam: GENERAL: well-nourished and in no acute distress. Alert and oriented x3 HEAD: Atraumatic, normocephalic. EYES: Pupils equal round and reactive to light, extraocular movements intact, sclera anicteric, conjunctiva are normal. ENT: TMs normal, nares patent, oropharynx clear without exudates. Moist mucous membranes. No oral ulcerations or bleeding gums noted NECK: supple without lymphadenopathy. Trachea is central. No cervical or axillary lymphadenopathy noted. Carotids are 2+, JVD WNL LUNGS: Respiration seems nonlabored, no significant accessory muscle action noted. Breath sounds clear to auscultation bilaterally and equal noted. No wheezes rales or rhonchi noted. No significant dullness noted on percussion. CHEST: Palpation of the chest wall shows no significant chest wall tenderness. No other significant abnormalities noted. HEART: [employer], No PSH, 1/6 SERGIO aortic area, 1/6 baca systolic murmur mitral area, no rubs, no gallops. ABDOMEN: Soft, no significant tenderness appreciated, normoactive bowel sounds. No guarding, no rebound. No rigidity noted . No masses appreciated. EXTREMITIES: Pedal pulses are 1-2+, no calf tenderness noted. No clubbing or cyanosis.trace to 1+ pedal edema noted NEUROLOGICAL: Focused neurological exam showed no significant neurologic deficit. Normal speech, no focal weakness appreciated. PSYCH: Normal mood, normal affect. Judgment and insight within normal limits. SKIN: No significant ecchymosis, rash, ulcerations or signs of pruritus noted. MUSCULOSKELETAL EXAM: No significant joint swelling noted. Results Laboratory Results: 06/10/17 06:13 06/10/17 06:13 06/10/17 06/10/17 06:13 06:13 WBC 7.0 RBC 3.75 Hgb 12.8 Hct 36.1 MCV 96 MCH 34.0 H MCHC 35.4 RDW 13.2 Plt Count 200 Sodium 142.2 Potassium 3.8 Chloride 107 Carbon Dioxide 25 Anion Gap 10 BUN 18 Creatinine 0.71 Est GFR ( Amer) > 60 Est GFR (Non-Af Amer) > 60 Glucose 94 Calcium 9.4 Total Bilirubin 0.7 AST 21 ALT 26 Alkaline Phosphatase 82 Total Protein 6.7 Albumin 4.1 Triglycerides 68 Cholesterol 211.78 H LDL Cholesterol Direct 96 VLDL Cholesterol 14.0 HDL Cholesterol 99 06/09/17 06/09/17 06/10/17 15:00 20:10 01:18 CK-MB (CK-2) 1.31 1.20 1.01 Troponin I 0.056 0.034 0.021 EKG Comments: Telemetry strips shows sinus rhythm. No sustained tachycardia or bradycardia arrhythmias noted. Impressions: Chest X-Ray 06/09/17 11:19 IMPRESSION: No significant interval change. No acute findings. Other findings as noted above Assessment & Plan - Diagnosis (1) Atrial fibrillation with RVR Is this a current diagnosis for this admission?: Yes (2) Essential hypertension Is this a current diagnosis for this admission?: Yes (3) Depression Qualifiers: Depression Type: major depressive disorder Is this a current diagnosis for this admission?: Yes (4) Sleep disorder Is this a current diagnosis for this admission?: Yes (5) Elevated troponin I level Is this a current diagnosis for this admission?: Yes - Notes Notes: Atrial fibrillation with rapid ventricular response: Patient converted to sinus rhythm. Patient noted to have hypertension. [id number] noted to be just 2. Duration of atrial fibrillation seems to be less than 12 hours. At this point, will discuss pros and cons of chronic anticoagulation but it may be worthwhile to place patient on chronic anticoagulation given her chadsvasc score of 2. Patient has been advised to quit using Afrin nasal spray but used Nasonex. Depression: Continue Prozac therapy. Sleep disorder: Patient does have Mallampati class IV oral classification. She does have difficulty falling asleep and staying asleep. Cannot tell me whether she has no sore not because she lives alone. Discussed association of sleep apnea with atrial fibrillation. Will consider scheduling her for a sleep study as an outpatient. Tropnin I Elevation: Nuclear stress test results showed no ischemia. 2D echo was subsequently reviewed and noted to show normal LVEF. Patient was seen multiple times today. - Time Time with patient: Greater than 35 minutes - Patient was seen multiple times. Total time exceeds 40 minutes. In the morning nuclear stress test procedure, risks benefits, alternatives were discussed. Patient seen during the stress test. Patient also seen after stress test when results were discussed with the patient in detail. Patient's questions were answered. Nuclear stress test results were discussed with the patient. Patient was informed that no definitive evidence of pharmacologic stress-induced ischemia noted. No definite fixed defects were noted. Patient informed that occasionally significant single vessel disease or balanced ischemia could be missed. However based on the current study results, would recommend aggressive risk factor modification and medical therapy. It may also be worthwhile to consider evaluation or empiric management of other causes of chest pain. Should no other cause be found and if persistent in having chest pain, then cardiac catheterization should be considered. Right now, recommendations are for aggressive risk factor modification and medical management. CODE STATUS was discussed, patient remains full code. Surrogate decision-maker unchanged. Multiple medical problems were addressed. More than 50% of the time spent coordinating care, discussing management plans with involved caregivers. Management plans discussed with involved personnels. Medical decision making was of moderate to high complexity, patient's has multiple comorbidities. Medications reviewed and adjusted accordingly: Yes
== END 2017-06-10 18:15 | disposition home or self-care (01) | DRG 309 ==
LOC: ER 11:18 → UNDOADMIN 13:09 → EH 13:09 → 3W 16:25
DX: I48.91 Unspecified atrial fibrillation (principal); E87.0 Hyperosmolality and hypernatremia; E87.2 Acidosis; F32.9 Major depressive disorder, single episode, unspecified; F41.9 Anxiety disorder, unspecified; I10 Essential (primary) hypertension; J45.998 Other asthma; R79.89 Other specified abnormal findings of blood chemistry; G47.9 Sleep disorder, unspecified; Z88.0 Allergy status to penicillin; Z88.2 Allergy status to sulfonamides
CPT/HCPCS: 36415; 71010; 78452; 80053; 80061; 80307; 81001; 82550; 82553; 83735; 84439; 84443; 84484; 85025; 85027; 85379; 85610; 85730; 93005; 93010; 93017; 93306; 96365; 96366; 99285; A9500; J0280; J1160; J1644; J2785; J3490; J7030; Q9969

== ENCOUNTER 2017-12-12 12:21 | Emergency (ER) | payer MEDICARE ==
--- NOTE | 2017-12-12 13:14 | ER Document Report ---
ED General - General Chief Complaint: Back Pain Stated Complaint: LOW BACK PAIN Time Seen by Provider: 12/12/17 13:12 Mode of Arrival: Ambulatory Information source: Patient Notes: Patient is a 62-year-old female with a history of A. fib otherwise healthy, who presents with right sided lower back pain that started last night. She states she has been battling an upper respiratory infection for the past week and was treated with antibiotics by her primary care doctor but has continued to cough even after finishing antibiotics. She states last night she was coughing so hard she felt a sudden onset in the right lower side of her back and says " feels like pulled muscle." She denies any fever, chills, nausea, vomiting, diarrhea, dysuria, hematuria, saddle paresthesias, bowel or bladder incontinence , unilateral weakness, numbness or tingling. She has tried Tylenol with no relief. She is on Xarelto for A. fib. TRAVEL OUTSIDE OF THE [place] IN LAST 30 DAYS: No - Related Data Allergies/Adverse Reactions: Penicillins Allergy (Verified 12/12/17 12:22) Sulfa (Sulfonamide Antibiotics) Allergy (Verified 12/12/17 12:22) Past Medical History - General Information source: Patient - Social History Smoking Status: Never Smoker Chew tobacco use (# tins/day): No Frequency of alcohol use: Occasional Drug Abuse: None Family History: Other - Father with hypertension and cancer Mother with OR and hypertension Sister with heart murmur congenital Patient has suicidal ideation: No Patient has homicidal ideation: No - Past Medical History Cardiac Medical History: Reports: Hx Atrial Fibrillation, Hx Hypertension Pulmonary Medical History: Reports: Hx Asthma Renal/ Medical History: Denies: Hx Peritoneal Dialysis Psychiatric Medical History: Reports: Hx Depression - anxiety Past Surgical History: Reports: Hx Gynecologic Surgery, Hx Tubal Ligation, Other - Vulvar laser surgery Review of Systems - Review of Systems Constitutional: See HPI EENT: No symptoms reported Cardiovascular: No symptoms reported Respiratory: No symptoms reported Gastrointestinal: No symptoms reported Genitourinary: No symptoms reported Female Genitourinary: No symptoms reported Musculoskeletal: See HPI Skin: No symptoms reported Hematologic/Lymphatic: No symptoms reported Neurological/Psychological: No symptoms reported Physical Exam - Vital signs Vitals: Temp Pulse Resp BP Pulse Ox 98.1 F 85 22 H 150/59 H 98 12/12/17 12:27 12/12/17 12:27 12/12/17 12:27 12/12/17 12:27 12/12/17 12:27 - Notes Notes: PHYSICAL EXAM: CONSTITUTIONAL: Alert and oriented, well-appearing and in no acute distress. Ambulatory and eating without difficulty. HENT: Normocephalic, atraumatic. Oropharynx clear without erythema, tonsilar exudate or malocclusion. Trachea midline. Uvula midline. Moist mucous membranes. EYES: Pupils equal round and reactive to light, EOM intact. Sclera anicteric, conjunctiva are normal. No entrapment. NECK: supple without lymphadenopathy. No midline tenderness or paraspinous muscle spasms. No step-offs or deformities. ROM intact. Negative Kernig's and negative Brudzinski's. HEART: Regular rate and rhythm without murmurs. LUNGS: CTAB and equal. No wheezes, rales or rhonchi. GI: Normactive bowel sounds. Abdomen is soft, nontender, non-distended. No organomegaly. no CVAT. No rebound or guarding. BACK: FROM to passive/active. Strength 5+/5. No vertebral point tenderness, step -offs, or deformities. Tender to palpation of the right lumbar musculature with mild spasms. No other bony tenderness, erythema, swelling or ecchymosis. No paraspinous muscle spasms. SLR negative b/l. DTRs 2+. EXTREMITIES: no bony tenderness, erythema, edema, ecchymosis or deformity. Normal range of motion, no pitting edema. No cyanosis. Cap Refill <3 seconds. NEURO: Cranial nerves grossly intact. Normal sensory/motor exams. PSYCH: Normal mood, normal affect. SKIN: Warm and dry. Normal turgor. No rashes or lesions noted. Course - Re-evaluation Re-evalutation: 12/12/17 13:14 Patient seen and examined. Vital signs stable, no acute distress, ambulatory in the ED without difficulty. Speaking in full sentences without difficulty. No red flag symptoms including bowel or bladder incontinence or saddle paresthesias -suspect spasm from coughing but will obtain x-rays. 12/12/17 14:33 Reviewed imaging results and images - negative for acute abnormalities. Discussed results with patient. She is on xarelto so discussed avoidance of NSAIDS. Will treat with pain medication and muscle relaxers. Low suspicion at this time for cauda equina syndrome, epidural abscess, spinal cord compression, fractures or dislocations or other emergent medical conditions at this time. At this time, will discharge with return precautions and follow-up recommendations. Verbal discharge instructions given at the bedside and opportunity for questions given. Medication warnings reviewed. Patient is in agreement with this plan and has verbalized understanding of return precautions and the need for primary care follow-up in the next 24-72 hours. - Vital Signs Vital signs: Temp Pulse Resp BP Pulse Ox 98.6 F 69 16 115/62 97 12/12/17 14:40 12/12/17 14:40 12/12/17 14:40 12/12/17 14:40 12/12/17 14:40 - Diagnostic Test Radiology reviewed: Image reviewed, Reports reviewed Discharge - Discharge Clinical Impression: Muscle spasm of back Low back strain Qualifiers: Encounter type: initial encounter Qualified Code(s): S39.012A - Strain of muscle, fascia and tendon of lower back, initial encounter Condition: Stable Disposition: HOME, SELF-CARE Additional Instructions: LOW BACK PAIN: Three out of every four people will have an episode of disabling back pain during their lifetime. Most commonly the pain is due to straining of the muscles and ligaments in the low back. Usual treatment includes: (1) Rest on a firm surface. Avoid lying on your stomach. (2) Ice pack the painful area. After a few days, gentle heat may be used intermittently to relax the area, or ice packs can be continued. (3) Medication may be needed -- muscle relaxers and antiinflammatory medicines are commonly used. (4) As the back improves, exercises are prescribed to strengthen the back and abdominal muscles. Your doctor will advise you on the proper care for your back at each stage in your recovery. You may be better in a few days -- or healing may take several weeks. If new symptoms of a "herniated disc" (radiation of pain, numbness, or tingling down the back of the leg or weakness in the leg) occur, you should be re-examined. Further testing may be necessary. ORAL NARCOTIC MEDICATION: You have been given a prescription for pain control. This medication is a narcotic. It's best taken with food, as nausea can result if taken on an empty stomach. Don't operate machinery or drive within six hours of taking this medication. Do not combine this medicine with alcohol, or with any medication which can cause sedation (such as cold tablets or sleeping pills) unless you get permission from the physician. Narcotics tend to cause constipation. If possible, drink plenty of fluids and eat a diet high in fiber and fruits. Please be aware that prescription narcotics also have the potential for abuse. People become addicted to these medications because of the general sense of wellbeing that they induce. This feeling along with a significant reduction in tension, anxiety, and aggression provides a stimulating seductive quality to these drugs. Once your pain is under control, we encourage you to discard your unused narcotics. MUSCLE RELAXERS: Muscle relaxing medications are usually prescribed for acute muscle spasm or injury to the neck and back. They are often combined with antiinflammatory pain medication for increased relief. You may stop the muscle relaxer when the pain and stiffness have improved. Start the medication again if spasms recur. Muscle relaxers may cause drowsiness, especially with the first dose. Do not operate machinery or drive while under the effects of the medication. Most muscle relaxers last up to 24 hours. Do not combine the medication with alcohol. ICE PACKS: Apply ice packs frequently against the painful area. Many different schedules are recommended, such as "20 minutes on, 20 minutes off" or "one hour ice, two hours rest." If you need to work, you may need to go longer between ice treatments. You should plan to have the area ice packed AT LEAST one fourth of the time. The ice should be applied over the wrap, tape, or splint, or over a layer of cloth -- not directly against the skin. Some ice bags have a built-in cloth and can be put directly on the skin. WARM PACKS: After approximately two days, apply gentle heat (such as a heating pad or hot water bottle) for about 20 to 30 minutes about every two hours -- at least four times daily. Warmth and elevation will help you make a more rapid recovery , and will ease the pain considerably. Do not use HOT heat, and never apply heat for longer than 30 minutes. The continuous heat can invisibly damage skin and muscles -- even when no burn is seen on the surface. Damaged muscles can make you MORE sore. FOLLOW-UP CARE: If you have been referred to a physician for follow-up care, call the physician s office for an appointment as you were instructed or within the next two days. If you experience worsening or a significant change in your symptoms, notify the physician immediately or return to the Emergency Department at any time for re-evaluation. Prescriptions: Hydrocodone/Acetaminophen [Vicodin 5-300 mg Tablet] 1 tab PO Q8HP PRN #12 tab PRN Reason: Cyclobenzaprine HCl [Flexeril 10 mg Tablet] 10 mg PO TIDP PRN #15 tab PRN Reason: Forms: Elevated Blood Pressure Referrals: LADI RASMUSSEN MD [Primary Care Provider] - Follow up in 3-5 days
[2017-12-12] MEDS ORDERED: BENZONATATE 100 MG CAPSULE PO ONE (13:43)
--- NOTE | 2017-12-12 14:23 | RADIOLOGY REPORT (SQ) ---
EXAM DESCRIPTION: L SPINE WHOLE COMPLETED DATE/TIME: 12/12/2017 2:09 pm REASON FOR STUDY: pain COMPARISON: 07/02/2016. NUMBER OF VIEWS: Five views including obliques. TECHNIQUE: AP, lateral, oblique, and sacral radiographic images acquired of the lumbar spine. LIMITATIONS: None. FINDINGS: MINERALIZATION: Normal. SEGMENTATION: Normal. No transitional anatomy. ALIGNMENT: Normal. VERTEBRAE: Maintained height. No fracture or worrisome bone lesion. DISCS: Mild disc space narrowing with osteophytes, most pronounced at L2-L3 and L4-L5. POSTERIOR ELEMENTS: Pedicles and facets are intact. No pars defect or posterior arch defects. HARDWARE: None in the spine. PARASPINAL SOFT TISSUES: Normal. PELVIS: Intact as visualized. No fractures or worrisome bone lesions. SI joints intact. OTHER: No other significant finding. IMPRESSION: STABLE CHRONIC DEGENERATIVE CHANGES. NO ACUTE FINDINGS. TECHNICAL DOCUMENTATION: JOB ID: [id number] [employer]- All Rights Reserved Reading location - IP/workstation name: [email or web address]
[2017-12-12 14:42] VITALS: BP 115/62
== END 2017-12-12 14:42 | disposition home or self-care (01) ==
LOC: ER 12:21
DX: S39.012A Strain of muscle, fascia and tendon of lower back, initial encounter (principal); M62.830 Muscle spasm of back; X58.XXXA Exposure to other specified factors, initial encounter; R05 Cough; Z88.0 Allergy status to penicillin; Z88.2 Allergy status to sulfonamides; I10 Essential (primary) hypertension; J45.909 Unspecified asthma, uncomplicated
CPT/HCPCS: 99283; 72110; A9270

== ENCOUNTER → 2018-01-02 | Outpatient (CLI) | payer MEDICARE ==
[2018-01-02 09:07] LABS: ABSOLUTE EOSINOPHILS # (AUTO) 0.3 10^3/uL (0.0-0.6); ABSOLUTE LYMPHOCYTES (AUTO) 1.1 10^3/uL (0.5-4.7); ABSOLUTE MONOCYTES (AUTO) 0.4 10^3/uL (0.1-1.4); ABSOLUTE NEUT (AUTO) 4.2 10^3/uL (1.7-8.2); BASOPHILS % (AUTO) 0.8 % (0-2); EOSINOPHILS % (AUTO) 4.9 % (0-6); HEMATOCRIT 38.5 % (36.0-47.0); HEMOGLOBIN 13.2 g/dL (12.0-15.5); MEAN CORPUSCULAR HEMOGLOBIN 32.6 pg (27.0-33.4); MEAN CORPUSCULAR HGB CONC 34.3 g/dL (32.0-36.0); MEAN CORPUSCULAR VOLUME 95 fl (80-97); PLATELET COUNT 307 10^3/uL (150-450); RED BLOOD COUNT 4.06 10^6/uL (3.72-5.28); RED CELL DISTRIBUTION WIDTH 13.2 % (11.5-14.0); SEGMENTED NEUTROPHILS % (AUTO) 70.3 % (42-78); TOTAL CELLS COUNTED % (AUTO) 100 %; WHITE BLOOD COUNT 5.9 10^3/uL (4.0-10.5)
[2018-01-02 09:32] LABS: ALANINE AMINOTRANSFERASE 42 U/L (9-52); ALBUMIN 4.5 g/dL (3.5-5.0); ALKALINE PHOSPHATASE 95 U/L (38-126); ANION GAP 9 (5-19); ASPARTATE AMINO TRANSFERASE 27 U/L (14-36); BILIRUBIN,DIRECT 0.2 mg/dL (0.0-0.4); BILIRUBIN,TOTAL 0.4 mg/dL (0.2-1.3); BLOOD UREA NITROGEN 17 mg/dL (7-20); CALCIUM 9.7 mg/dL (8.4-10.2); CARBON DIOXIDE 31 mmol/L (22-30); CHLORIDE 103 mmol/L (98-107); CHOLESTEROL 269.11 mg/dL (0-200); GLUCOSE 97 mg/dL (75-110); POTASSIUM 4.7 mmol/L (3.6-5.0); SODIUM 143.4 mmol/L (137-145); TOTAL PROTEIN 7.4 g/dL (6.3-8.2); TRIGLYCERIDES 111 mg/dL (<150)
[2018-01-02 09:43] LABS: DIRECT LDL 128 mg/dL (<100)
== END ==
LOC: LAB 08:48
PROVIDERS: ATTEND Internal Medicine
DX: I48.1 Persistent atrial fibrillation (principal); E78.00 Pure hypercholesterolemia, unspecified; Z79.899 Other long term (current) drug therapy
CPT/HCPCS: 36415; 80053; 80061; 85025

== ENCOUNTER → 2019-02-02 | Outpatient (CLI) | payer MEDICARE, MEDICAID ==
[2019-02-02 12:17] LABS: ALANINE AMINOTRANSFERASE 26 U/L (9-52); ALKALINE PHOSPHATASE 110 U/L (38-126); ANION GAP 14 (5-19); ASPARTATE AMINO TRANSFERASE 19 U/L (14-36); BILIRUBIN,DIRECT 0.2 mg/dL (0.0-0.4); BILIRUBIN,TOTAL 0.4 mg/dL (0.2-1.3); BLOOD UREA NITROGEN 7 mg/dL (7-20); CALCIUM 9.5 mg/dL (8.4-10.2); CARBON DIOXIDE 25 mmol/L (22-30); CHLORIDE 102 mmol/L (98-107); GLUCOSE 101 mg/dL (75-110); POTASSIUM 4.1 mmol/L (3.6-5.0); SODIUM 140.6 mmol/L (137-145); TOTAL PROTEIN 6.3 g/dL (6.3-8.2)
== END ==
LOC: OD 11:12
PROVIDERS: ATTEND Orthopaedic Surgery
DX: M16.11 Unilateral primary osteoarthritis, right hip (principal); M23.91 Unspecified internal derangement of right knee; M25.551 Pain in right hip; I10 Essential (primary) hypertension
CPT/HCPCS: 36415; 80053

== ENCOUNTER → 2019-02-26 | Outpatient (CLI) | payer MEDICARE, MEDICAID ==
--- NOTE | 2019-02-26 17:28 | RADIOLOGY REPORT (SQ) ---
EXAM DESCRIPTION: ELBOW RIGHT >2 VIEWS COMPLETED DATE/TIME: 02/26/2019 5:12 pm REASON FOR STUDY: PAIN SWELLING S50.01XA CONTUSION OF RIGHT ELBOW, INITIAL ENCOUNTER COMPARISON: None. NUMBER OF VIEWS: Four views. TECHNIQUE: AP, lateral, and both oblique radiographic images acquired of the right elbow. LIMITATIONS: None. FINDINGS: MINERALIZATION: Normal. BONES: No acute fracture or dislocation. No worrisome bone lesions. JOINT: There is an elbow joint effusion with elevation of the ventral and dorsal fat pads on lateral view. This could indicate a radiographically occult radial head fracture. Follow-up films in 7 to 1 0 days are recommended to exclude radial head fracture. SOFT TISSUES: No soft tissue swelling. No foreign body. OTHER: No other significant finding. IMPRESSION: There is an elbow joint effusion with elevation of the ventral and dorsal fat pads on la teral view. This could indicate a radiographically occult radial head fracture. Follow-up films in 7 to 10 days are recommended to exclude radial head fracture. TECHNICAL DOCUMENTATION: JOB ID: [id number] [employer]- All Rights Reserved Reading location - IP/workstation name: [email or web address]
== END ==
LOC: OD 16:30
PROVIDERS: ATTEND Internal Medicine
DX: S50.01XA Contusion of right elbow, initial encounter (principal); M25.421 Effusion, right elbow; X58.XXXA Exposure to other specified factors, initial encounter

== ENCOUNTER → 2019-03-10 | Outpatient (CLI) | payer MEDICARE, MEDICAID ==
[2019-03-10 10:45] LABS: ABSOLUTE LYMPHOCYTES (AUTO) 0.7 10^3/uL (0.5-4.7); ABSOLUTE MONOCYTES (AUTO) 0.7 10^3/uL (0.1-1.4); ABSOLUTE NEUT (AUTO) 5.3 10^3/uL (1.7-8.2); BASOPHILS % (AUTO) 0.4 % (0-2); EOSINOPHILS % (AUTO) 0.7 % (0-6); HEMATOCRIT 33.6 % (36.0-47.0); HEMOGLOBIN 11.3 g/dL (12.0-15.5); LYMPHOCYTES % (AUTO) 10.5 % (13-45); MEAN CORPUSCULAR HEMOGLOBIN 31.2 pg (27.0-33.4); MEAN CORPUSCULAR HGB CONC 33.5 g/dL (32.0-36.0); MEAN CORPUSCULAR VOLUME 93 fl (80-97); MONOCYTES % (AUTO) 10.3 % (3-13); PLATELET COUNT 324 10^3/uL (150-450); RED BLOOD COUNT 3.61 10^6/uL (3.72-5.28); RED CELL DISTRIBUTION WIDTH 13.2 % (11.5-14.0); SEGMENTED NEUTROPHILS % (AUTO) 78.1 % (42-78); TOTAL CELLS COUNTED % (AUTO) 100 %; WHITE BLOOD COUNT 6.9 10^3/uL (4.0-10.5)
[2019-03-10 11:13] LABS: ALANINE AMINOTRANSFERASE 39 U/L (9-52); ALBUMIN 4.1 g/dL (3.5-5.0); ALKALINE PHOSPHATASE 154 U/L (38-126); ANION GAP 10 (5-19); ASPARTATE AMINO TRANSFERASE 29 U/L (14-36); BILIRUBIN,DIRECT 0.2 mg/dL (0.0-0.4); BILIRUBIN,TOTAL 0.3 mg/dL (0.2-1.3); BLOOD UREA NITROGEN 20 mg/dL (7-20); C-REACTIVE PROTEIN 28.9 mg/L (<10.0); CALCIUM 9.5 mg/dL (8.4-10.2); CARBON DIOXIDE 28 mmol/L (22-30); CHLORIDE 100 mmol/L (98-107); GLUCOSE 92 mg/dL (75-110); POTASSIUM 4.8 mmol/L (3.6-5.0); SODIUM 137.7 mmol/L (137-145); TOTAL PROTEIN 7.1 g/dL (6.3-8.2); URIC ACID 2.7 mg/dL (2.5-7.5)
[2019-03-10 11:28] LABS: ERYTHROCYTE SEDIMENTATION RATE 51 mm/hr (0-30)
== END ==
LOC: OD 10:07
PROVIDERS: ATTEND Physician Assistant
DX: M25.522 Pain in left elbow (principal)
CPT/HCPCS: 36415; 80053; 84550; 85025; 85652; 86038; 86140; 86430

== ENCOUNTER → 2019-03-31 | Outpatient (CLI) | payer MEDICARE, MEDICAID ==
--- NOTE | 2019-03-31 15:20 | RADIOLOGY REPORT (SQ) ---
EXAM DESCRIPTION: MRI LT UPPER JOINT WITHOUT COMPLETED DATE/TIME: 03/31/2019 11:20 am REASON FOR STUDY: M25.532 PAIN IN LEFT WRIST M25.532 PAIN IN LEFT WRIST M25.531 PAIN IN RIGHT WRIS T COMPARISON: None. TECHNIQUE: Left wrist images acquired and stored on PACS. Multiplanar images include fat sensitive sequences as T1, fluid sensitive sequences as FST2/STIR, cartilage sensitive sequences as FSPD, gradi ent echo sequences. LIMITATIONS: Patient movement. Positioning. FINDINGS: BONE MARROW: No alteration of signal to suggest marrow replacement or edema. No occult fra cture. No large osteophytes. CARPAL ALIGNMENT AND ARTICULATION: Mild osteoarthritic changes in the base of the thumb. Negative ul curtis variance. Normal capitolunate angle. No widening of scapholunate articulation. EFFUSION: Joint effusion. SCAPHOLUNATE LIGAMENT: Intact as visualized. LUNATE-TRIQUETRAL LIGAMENT: Intact as visualized. TFC COMPLEX: Intact as visualized. EXTRINSIC LIGAMENTS AND DISTAL RADIO-ULNAR JOINT: Dorsal and volar distal RUJ intact without subluxat ion of the distal ulna. 1-6 EXTENSOR COMPARTMENTS: The extensor carpi ulnaris tendon is dorsal to the groove in the ulna. Th is is probably artifact of positioning. CARPAL TUNNEL AND MEDIAN NERVE: Normal volume and morphology of the carpal tunnel proximally at the l evel of the radiocarpal joint and distally at the hook of the hamate. No thickening or signal alterat ion of the median nerve. OTHER: No other significant finding. IMPRESSION: Limitations due to motion. Osteoarthritis. Joint effusion. Extensor carpi ulnaris tendon dorsal to the groove in the ulna, probably due to artifact of positioni ng. TECHNICAL DOCUMENTATION: JOB ID: [id number] [employer]- All Rights Reserved Reading location - IP/workstation name: [email or web address]
--- NOTE | 2019-03-31 15:22 | RADIOLOGY REPORT (SQ) ---
EXAM DESCRIPTION: MRI RT UPPER JOINT WITHOUT COMPLETED DATE/TIME: 03/31/2019 11:20 am REASON FOR STUDY: M25.531 PAIN IN RIGHT WRIST M25.532 PAIN IN LEFT WRIST M25.531 PAIN IN RIGHT [address]RI ST COMPARISON: None. TECHNIQUE: Right wrist images acquired and stored on PACS. Multiplanar images include fat sensitive sequences as T1, fluid sensitive sequences as FST2/STIR, cartilage sensitive sequences as FSPD, grad ient echo sequences. LIMITATIONS: None. FINDINGS: BONE MARROW: No alteration of signal to suggest marrow replacement or edema. No occult fra cture. No large osteophytes. CARPAL ALIGNMENT AND ARTICULATION: Moderate osteoarthritic changes in the base of the thumb. Negativ e ulnar variance. Normal capitolunate angle. No widening of scapholunate articulation. EFFUSION: Joint effusion. SCAPHOLUNATE LIGAMENT: Intact as visualized. LUNATE-TRIQUETRAL LIGAMENT: Intact as visualized. TFC COMPLEX: Intact as visualized. EXTRINSIC LIGAMENTS AND DISTAL RADIO-ULNAR JOINT: Slight dorsal position of the distal ulna likely re lated to positioning. 1-6 EXTENSOR COMPARTMENTS: The extensor carpi ulnaris tendon is dorsal to the groove in the ulna. Th is is probably artifact of positioning. CARPAL TUNNEL AND MEDIAN NERVE: Normal volume and morphology of the carpal tunnel proximally at the l evel of the radiocarpal joint and distally at the hook of the hamate. No thickening or signal alterat ion of the median nerve. OTHER: No other significant finding. IMPRESSION: Limitations due to motion. Osteoarthritis. Joint effusion. TECHNICAL DOCUMENTATION: JOB ID: [id number] [employer]- All Rights Reserved Reading location - IP/workstation name: [email or web address]
== END ==
LOC: RAD 09:50
PROVIDERS: ATTEND Physician Assistant
DX: M25.532 Pain in left wrist (principal); M25.531 Pain in right wrist; M19.032 Primary osteoarthritis, left wrist; M19.031 Primary osteoarthritis, right wrist; M25.432 Effusion, left wrist; M25.431 Effusion, right wrist

== ENCOUNTER → 2019-09-08 | Outpatient (CLI) | payer MEDICARE, MEDICAID ==
--- NOTE | 2019-09-08 15:15 | WOMENS IMAGING REPORT ---
EXAM DESCRIPTION: 3D SCREENING MAMMO BILAT COMPLETED DATE/TIME: 09/08/2019 9:48 am REASON FOR STUDY: Z12.31 SCREENING MAMMO Z12.31 ENCNTR SCREEN MAMMOGRAM FOR MALIGNANT NEOPLASM OF B RE COMPARISON: 2015, 2016 EXAM PARAMETERS: Views: Standard craniocaudal and mediolateral oblique views of each breast recorded using digital acquisition and breast tomosynthesis. Read with the assistance of CAD. .[facility] - R2 [employer] Version 1.3 LIMITATIONS: None. FINDINGS: No suspicious masses, suspicious calcifications or architectural distortion. No areas of c oncern. IMPRESSION: NEGATIVE MAMMOGRAM. BIRADS 1. BREAST DENSITY: c. The breasts are heterogeneously dense, which may obscure small masses. BIRAD: ASSESSMENT: 1 NEGATIVE RECOMMENDATION: ROUTINE SCREENING Please continue yearly bilateral screening mammography/tomosynthesis in August 2020. COMMENT: The patient has been notified of the results by letter per MQSA requirements. Additional no tification policies are in place for contacting patient with suspicious or incomplete findings. Quality ID #[id number]: The [employer] recommends an annual screening mammogram for women aged 40 years or over. This facility utilizes a reminder system to ensure that all patients receive reminder letters, and/or direct phone calls for appointments. This includes reminders for routine scr eening mammograms, diagnostic mammograms, or other Breast Imaging Interventions when appropriate. Th is patient will be placed in the appropriate reminder system. TECHNICAL DOCUMENTATION: FINDING NUMBER: (1) ASSESSMENT: (1) JOB ID: [id number] [email or web address]- All Rights Reserved Reading location - IP/workstation name: [email or web address]
== END ==
LOC: WI 09:05
PROVIDERS: ATTEND Obstetrics & Gynecology Gynecology
DX: Z12.31 Encounter for screening mammogram for malignant neoplasm of breast (principal)
CPT/HCPCS: 77063; 77067